=== PATIENT | female | born 1985 | race African-American/Black ===

== ENCOUNTER 2017-07-15 12:36 | Emergency (ER) | payer OTHER ==
[~2017-07-15] VITALS: Ht 172.7 cm; Wt 74.4 kg
[2017-07-15] MEDS ORDERED: FAMOTIDINE 20 MG/2 ML ONE (14:43)
[2017-07-15] MEDS ORDERED: PROMETHAZINE 25 MG/ML, 1ML ONE (14:43)
[2017-07-15 15:00] LABS: HEMOGLOBIN 11.3 g/dL (11.7-16.4); WHITE BLOOD COUNT 10.1 x10^3/uL (3.4-10)
[2017-07-15] MEDS ORDERED: FAMOTIDINE 20 MG/2 ML IVP ONE (15:00)
[2017-07-15] MEDS ORDERED: SODIUM CHLORIDE 0.9% 1,000ML IVBOLUS ONE (15:00)
[2017-07-15] MEDS ORDERED: PROMETHAZINE 25 MG/ML, 1ML IM ONE (15:00)
[2017-07-15 15:11] LABS: BLOOD UREA NITROGEN 6 mg/dL (7-18)
[2017-07-15 15:12] LABS: ASPARTATE AMINO TRANSFERASE 11 U/L (15-37)
[2017-07-15] MEDS ORDERED: SODIUM CHLORIDE FLUSH 10ML SYR IVF ONE (15:30)
[2017-07-15] MEDS ORDERED: METO10TA82 PO (15:35)
[2017-07-15] MEDS ORDERED: ONDA4TAB13 SL (15:35)
[2017-07-15] MEDS ORDERED: ONDANSETRON 2MG/ML, 2ML IVPush ONE (16:00)
[2017-07-15] MEDS ORDERED: ONDANSETRON 2MG/ML, 2ML ONE (16:11)
[2017-07-15 17:39] VITALS: BP 106/64
== END 2017-07-15 17:43 | disposition home or self-care (01) ==
LOC: ED 15:07
DX: O21.9 Vomiting of pregnancy, unspecified (principal); Z3A.13 13 weeks gestation of pregnancy; O26.891 Other specified pregnancy related conditions, first trimester; R19.7 Diarrhea, unspecified
CPT/HCPCS: 36415; 80053; 81001; 83690; 85025; 87086; 96361; 96372; 96374; 96375; 99285; J2405; J2550; J7030; S0028